=== PATIENT | male | born 2000 | race Caucasian/White ===

== ENCOUNTER 2024-05-23 18:47 | Emergency (ER) | payer OTHER ==
[~2024-05-23] VITALS: Ht 172.7 cm; Wt 87.6 kg
[2024-05-23] MEDS: IBUPROFEN 600MG TAB PO ONE (22:08)
[2024-05-23] MEDS: ACETAMINOPHEN 500 MG TAB PO ONE (22:08)
[2024-05-23 22:16] VITALS: BP 131/66; TEMP 98.3; O2SAT 100
== END 2024-05-23 22:18 | disposition home or self-care (01) ==
LOC: M ED 18:47
DX: S13.4XXA Sprain of ligaments of cervical spine, initial encounter (principal); Y92.9 Unspecified place or not applicable; Y93.9 Activity, unspecified; Y99.9 Unspecified external cause status; V49.40XA Driver injured in collision with unspecified motor vehicles in traffic accident, initial encounter; F17.210 Nicotine dependence, cigarettes, uncomplicated